=== PATIENT | female | born 1990 | race African-American/Black ===

== ENCOUNTER 2017-09-10 16:25 | Inpatient (IN) | payer BC ==
[2017-09-11] MEDS ORDERED: TERBUTALINE 1 MG/ML VIAL SQ PRN (06:11)
[2017-09-11] MEDS ORDERED: LIDOCAINE 1% (PF) 10 MG/ML (30 ML SDV) SQ PRN (06:11)
[2017-09-11] MEDS ORDERED: CARBOPROST TROMETHAMINE 250 MCG/ML 1 ML AMP IM PRN (06:11)
[2017-09-11] MEDS ORDERED: OXYTOCIN 10 UNIT/ML 1 ML VIAL IM PRN (06:11)
[2017-09-11] MEDS ORDERED: METHYLERGONOVINE 0.2 MG/ML 1 ML AMP IM PRN (06:11)
[2017-09-11 06:15] VITALS: BMI 38.2
[2017-09-11] MEDS ORDERED: OXYTOCIN 20 UNITS/1000 ML NS 1,000 ML IV SCH (06:15)
[2017-09-11] MEDS ORDERED: LACTATED RINGERS 1,000 ML IV SCH ×2 (06:15)
[2017-09-11 06:32] LABS: Basophils % (A) 0 %; Eosinophils # (A) 0.3 k/uL (0-0.7); Eosinophils % (A) 3 %; HCT 33.9 % (34.0-46.0); HGB 10.7 gm/dL (11.4-16.0); Lymphocytes # (A) 3.2 k/uL (1.0-4.8); Lymphocytes % (A) 26 %; MCH 27.4 pg (25.0-35.0); MCHC 31.6 g/dL (31.0-37.0); MCV 86.8 fL (80.0-100.0); Mean Platelet Volume 9.1; Monocytes # (A) 0.7 k/uL (0-1.0); Monocytes % (A) 5 %; Neutrophils # (A) 7.8 k/uL (1.3-7.7); Neutrophils % (A) 63 %; Platelet Count 316 k/uL (150-450); RBC 3.91 m/uL (3.80-5.40); RDW 15.4 % (11.5-15.5); WBC 12.3 k/uL (3.8-10.6)
--- NOTE | 2017-09-11 08:24 | P.HPOB ---
History of Present Illness H&P Date: 09/11/17 This is a 27-year-old black female 1 para 0 EDC 09/10/2017 at 40 and one sevenths weeks' gestation. Patient presents today for induction with favorable cervix. is essentially unremarkable. She denies vaginal bleeding or fluid leakage. Fetus is been active throughout the . history significant for blood type B positive, rubella status immune. VDRL testing, urine culture, gonorrhea and chlamydia cultures, hepatitis B surface antigen, HIV testing, urine drug screen all negative. Group B strep cultures negative. One-hour Glucola 133. In addition, sonographically a 11 x 9 x 9 cm uterine fibroid is noted on the right uterine sidewall. Social history patient is single, she denies tobacco or alcohol use. She has a history of marijuana use in the past but urine drug screen with the is negative. Family history significant for hypertension, heart disease, and diabetes. Past surgical history wisdom teeth extracted in 2015. Current medications vitamins daily. ALLERGIES include dairy products and dust mites. She states that Imitrex makes her tongue swell. Past medical history significant for anxiety, asthma, and sleep disorder. On exam this is a pleasant black female, she is 5 foot 5 inches 230 pounds blood pressure 144/87. The general physical exam is within normal limits. Chest is clear in all bennett. No peripheral edema. heart tones are in the 140s with frequent accelerations, however subtle late decelerations are noted as well. Cervix is 3-4 cm dilated, 70% effaced, -2 station, vertex presentation. Artificial amniorrhexis reveals clear fluid. Internal scalp lead is placed. Impression: 40 and one sevenths weeks intrauterine , here for induction , 11 cm uterine fibroid noted, occasional subtle late decelerations noted at this time. Plan: Currently heart rate is reassuring and we will continue to monitor. Begin oxytocin augmentation per hospital protocol and titrated as indicated. Analgesic options have been reviewed. Continue close maternal and surveillance. Anticipate normal spontaneous vaginal delivery. Review of Systems Constitutional: Reports as per HPI Past Medical History Past Medical History: No Reported History, Asthma Additional Past Medical History / Comment(s): anxiety,asthma History of Any Multi-Drug Resistant Organisms: None Reported Past Surgical History: No Surgical Hx Reported Additional Past Surgical History / Comment(s): wisdom teeth extracted Past Anesthesia/Blood Transfusion Reactions: No Reported Reaction Past Psychological History: No Psychological Hx Reported Smoking Status: Never smoker Past Alcohol Use History: None Reported Past Drug Use History: None Reported - Past Family History Mother Family Medical History: Diabetes Mellitus, Hypertension Medications and Allergies Allergies Allergy/AdvReac Type Severity Reaction Status Date / Time sumatriptan [From Imitrex] Allergy Anaphylaxis Verified 03/08/17 22:25 Exam - Vital Signs Vital signs: Vital Signs Temp Pulse Resp BP Pulse Ox 09/11/17 06:12 97.4 F L 103 H 18 144/87 98 Intake and Output 09/10/17 09/11/17 09/11/17 22:59 06:59 14:59 Other: Weight 104.326 kg See dictation under HPI please Results Result Diagrams: 09/11/17 06:15 Abnormal Lab Results - Last 24 Hours (Table) 09/11/17 Range/Units 06:15 WBC 12.3 H (3.8-10.6) k/uL Hgb 10.7 L (11.4-16.0) gm/dL Hct 33.9 L (34.0-46.0) % Neutrophils # 7.8 H (1.3-7.7) k/uL Assessment and Plan Plan: Oxytocin per hospital protocol. Continue close maternal and surveillance. Anticipate normal spontaneous vaginal delivery. Time with Patient: Less than 30
[2017-09-11] MEDS ORDERED: BUTORPHANOL 1 MG/ML 1 ML VIAL IV PRN (08:41)
[2017-09-11] MEDS ORDERED: CITRIC ACID-SODIUM CITRATE 15 ML CUP PO ONE (10:54)
[2017-09-11] MEDS ORDERED: ceFAZolin IN SWFI 2 GM/20 ML SYRINGE IVP ONE (10:54)
[2017-09-11] MEDS ORDERED: OXYTOCIN 10 UNIT/ML 1 ML VIAL ONE (11:16)
[2017-09-11] MEDS ORDERED: NALBUPHINE 10 MG/ML AMPUL ONE (11:16)
[2017-09-11] MEDS ORDERED: PHENYLEPHRINE-0.9% NACL SYG 1 MG/10 ML SYRINGE ONE (11:16)
[2017-09-11] MEDS ORDERED: ONDANSETRON 4 MG/2 ML VIAL ONE (11:16)
[2017-09-11] MEDS ORDERED: ePHEDrine SULFATE/0.9% NACL/PF 50 MG/5 ML SYRINGE IV ONE (11:16)
[2017-09-11] MEDS ORDERED: MORPHINE SULFATE (PF) 0.3 MG/0.3 ML SYR ONE (11:16)
[2017-09-11] MEDS ORDERED: KETOROLAC 30 MG/ML 1 ML VIAL ONE (11:16)
[2017-09-11] MEDS ORDERED: diphenhydrAMINE 50 MG/ML 1 ML VIAL IVP PRN ×3 (11:40→12:14)
[2017-09-11] MEDS ORDERED: NALBUPHINE 10 MG/ML AMPUL IV PRN (11:40)
[2017-09-11] MEDS ORDERED: MORPHINE SULFATE 4 MG/ML SYRINGE IVP PRN (11:40)
[2017-09-11] MEDS ORDERED: NALOXONE 0.4 MG/ML 1 ML VIAL IV PRN ×2 (11:40→12:14)
[2017-09-11] MEDS ORDERED: ONDANSETRON 4 MG/2 ML VIAL IVP PRN (12:14)
[2017-09-11] MEDS ORDERED: HYDROcodone/APAP 5-325MG 1 EACH TAB PO PRN (12:14)
[2017-09-11] MEDS ORDERED: diphenhydrAMINE 25 MG CAP PO PRN (12:14)
[2017-09-11] MEDS ORDERED: METOCLOPRAMIDE 5 MG/ML 2 ML VIAL IVP PRN (12:14)
[2017-09-11] MEDS ORDERED: ZOLPIDEM 5 MG TAB PO PRN (12:14)
[2017-09-11] MEDS ORDERED: diphenhydrAMINE 50 MG CAP PO PRN (12:14)
--- NOTE | 2017-09-11 12:14 | P.OP ---
Date of Procedure: 09/11/17 Preoperative Diagnosis: Nonreassuring heart tones, 40 and one sevenths weeks' gestation, known fibroid uterus. Postoperative Diagnosis: Asynclitic brow presentation, nuchal cord 1, multiple fibroids Procedure(s) Performed: Primary low transverse section Anesthesia: spinal Surgeon: Leticia Melara Sales Estimator #1: Cynthia Ford Estimated Blood Loss (ml): 600 IV fluids (ml): 700 Urine output (ml): 100 Pathology: other (Placenta) Condition: stable Disposition: PACU Description of Procedure: Through the course of the first stage of labor, repetitive late decelerations were noted. Patient became 4 cm, 100% effaced, -2 station. Pitocin had been off for approximately 1 hour. After thorough discussion, the decision was made to proceed with primary low transverse section for nonreassuring heart tones. Patient is brought back to the operating suite where a spinal with Duramorph is given. She's placed in the dorsal lithotomy position with left lateral uterine displacement. The appropriate timeout is performed to assure proper patient and procedural identification. Antibiotics are given. The abdomen is prepped and draped in usual sterile fashion. Analgesia is checked and noted to be adequate. A low transverse skin incision is made in this is carried down through the subcutaneous tissue which is approximately 6 cm deep. Fascia is isolated, scored and extended bilaterally with curved Vega scissors. Peritoneum is next identified and incised, there is no bowel or bladder involvement. The disposable ring retractor is placed for excellent visualization. A low transverse uterine incision is made, this is carried down through the myometrium and extended with blunt dissection. The head is noted to be deep in the pelvis, and in an asynclitic position. Brow presentation is noted. The head is gently brought into the uterine incision. There is a nuchal cord 1 that was reduced. Patient is officially delivered of a liveborn male infant at 1134 hrs. Umbilical cord is doubly clamped and ligated, he is handed to waiting nurses for evaluation where scores of 6 and 8 at one and 5 minutes respectively are given. The placenta is delivered spontaneously, it is inspected and noted to be intact with trivascular cord. At this time the uterus is externalized. Multiple large fibroids are noted, largest approximately 12-14 cm, very vascular in appearance. The uterus is swept clean with a sterile sponge to avoid any retained products of conception. The uterus is closed in a two-step fashion first layer running locking with 0 Vicryl, second layer imbricated with 0 Vicryl. Bilateral tubes and ovaries are inspected and noted to be normal. Abdomen is suctioned with suction on guard and the uterus is gently placed back into the abdominal cavity. Bilateral gutters are inspected and cleaned. Peritoneum is allowed to close by secondary intention. Fascia is closed in a running stitch of 0 Vicryl with over ligation in the midline. Subcutaneous tissue is irrigated, noted to be clean and dry, reapproximated with 3-0 Vicryl in a running stitch. 4-0 undyed Monocryl issues for final subcuticular closure. Steri-Strips and Mastisol are applied to the wound. Uterus is massaged. Total estimated blood loss 600 mL's. weighed 9 lbs. 5 oz. or 4230 g. The patient and her are requesting circumcision further infant son.
[2017-09-11] MEDS: LACTATED RINGERS 1,000 ML IV SCH ×2 (17:33→21:03)
[2017-09-11] MEDS: SENNOSIDES-DOCUSATE SODIUM 1 EACH TAB PO SCH (20:15)
[2017-09-11] MEDS: KETOROLAC 30 MG/ML 1 ML VIAL IVP PRN (21:22)
[2017-09-12] MEDS: ACETAMINOPHEN TAB 325 MG TAB PO PRN ×2 (03:14→10:07)
[2017-09-12] MEDS: LACTATED RINGERS 1,000 ML IV SCH (05:12)
[2017-09-12] MEDS: KETOROLAC 30 MG/ML 1 ML VIAL IVP PRN (06:51)
--- NOTE | 2017-09-12 07:47 | P.PN ---
Subjective Progress Note Date: 09/12/17 Principal diagnosis: Postoperative day #1 Slept well. Pain well managed. Minimal lochia rubra. No incisional complaints. Positive flatus Objective - Vital Signs Vital signs: Vital Signs Temp 99.8 F H 09/12/17 04:00 Pulse 108 H 09/12/17 04:00 Resp 16 09/12/17 06:00 BP 140/87 09/12/17 04:00 Pulse Ox 100 09/12/17 04:00 Intake & Output 09/11/17 09/12/17 09/12/17 18:59 06:59 18:59 Intake Total 600 Output Total 150 900 300 Balance -150 -300 -300 Intake: Other 600 Output: Urine 150 900 300 Straight 200 Uretheral (Martinez) 300 - Constitutional General appearance: Present: average body habitus, cooperative - EENT Eyes: Present: PERRLA ENT: Present: hearing grossly normal - Neck Neck: Present: normal ROM Thyroid: bilateral: normal size - Respiratory Respiratory: bilateral: CTA - Cardiovascular Rhythm: regular Heart sounds: normal: S1, S2 - Gastrointestinal General gastrointestinal: Present: normal bowel sounds - Genitourinary Genitourinary Comment(s): Incision clean and dry, well approximated, Steri-Strips applied. Fundus firm, midline, 18-20 weeks size, nontender, irregular in contour. - Integumentary Integumentary: Present: normal turgor - Neurologic Neurologic: Present: CNII-XII intact - Musculoskeletal Musculoskeletal: Present: gait normal, strength equal bilaterally - Psychiatric Psychiatric: Present: A&O x's 3, appropriate affect, intact judgment & insight - Labs CBC & Chem 7: 09/11/17 06:15 Assessment and Plan Assessment: Doing well postoperative day 1 Plan: Advance diet and activity. Check CBC this morning, likely discontinuation of IV. Patient may shower. Time with Patient: Less than 30
[2017-09-12 08:05] LABS: Basophils % (A) 0 %; Eosinophils # (A) 0.2 k/uL (0-0.7); Eosinophils % (A) 1 %; HGB 8.4 gm/dL (11.4-16.0); Hypochromasia Slight; Lymphocytes # (A) 2.1 k/uL (1.0-4.8); Lymphocytes % (A) 14 %; MCHC 31.2 g/dL (31.0-37.0); MCV 86.6 fL (80.0-100.0); Mean Platelet Volume 9.9; Monocytes # (A) 0.8 k/uL (0-1.0); Monocytes % (A) 5 %; Neutrophils # (A) 12.1 k/uL (1.3-7.7); Neutrophils % (A) 78 %; Platelet Count 262 k/uL (150-450); RBC 3.11 m/uL (3.80-5.40); RDW 15.6 % (11.5-15.5); WBC 15.4 k/uL (3.8-10.6)
[2017-09-12] MEDS: SENNOSIDES-DOCUSATE SODIUM 1 EACH TAB PO SCH ×2 (10:06→19:38)
[2017-09-12] MEDS: IBUPROFEN 600 MG TAB PO PRN ×2 (13:09→19:38)
--- NOTE | 2017-09-12 13:45 | P.PN ---
Progress Note - Text Date:09/12 Time:705 Patient is status post . Patient seen this morning with VAS score of 2.c/o of pruritus, no c/o nausea/vomiting.
[2017-09-13] MEDS: IBUPROFEN 600 MG TAB PO PRN ×3 (02:02→15:52)
[2017-09-13] MEDS: SENNOSIDES-DOCUSATE SODIUM 1 EACH TAB PO SCH (08:11)
--- NOTE | 2017-09-13 08:17 | P.DS ---
Providers Date of admission: 09/11/17 06:05 Expected date of discharge: 09/13/17 Attending physician: Leticia Melara Primary care physician: [facility] Course: This is a 27-year-old black female 1 para 0 EDC 09/10/2017 at 40 and one sevenths weeks' gestation. Patient presented for induction with favorable cervix. Artificial amniorrhexis revealed clear fluid. Oxytocin was started and titrated per hospital protocol. Group B strep cultures are negative. Patient has a history of large uterine fibroids, largest 12 cm sonographically. Please see my dictated history and physical for details. Patient progressed through labor but had runs of late decelerations. For nonreassuring heart tones, primary low transverse section was performed. Patient gave to a liveborn male with scores of 6 and 8 at one and 5 minutes respectively. He was noted to be in a brow presentation with extension of the head. In addition, multiple large fibroids in the uterus were noted. Ovaries appeared normal. Estimated blood loss 600 mL 's. Please see dictated delivery note for details. Patient is doing well this morning. She is voiding, ambulating and passing flatus without difficulty. Vital signs are stable and she is afebrile. Fundus is firm and in the midline, asymmetric and 20 weeks size. Incision is clean and dry, intact, Steri-Strips applied. Florence circumcision has been performed. Pain is well tolerated with ibuprofen products. Patient is being discharged home in addition. She will follow-up with me in the office in 2 weeks. She is reminded no intercourse, tampons or douching. She will use [id number] Motrin products as needed for pain, 200 mg pills, for every 8 hours as needed. I have asked her to call with any fevers shakes or chills, foul smelling or copious lochia, with the passage of large blood clots, with any pain not alleviated by ibuprofen, or indeed with any concerns. She is reminded no heavy lifting, no car driving for 2 weeks. Florence will follow-up with dye beck reel operator as recommended. Patient Condition at Discharge: Good Plan - Discharge Summary Follow up Appointment(s)/Referral(s): Leticia Melara MD [STAFF PHYSICIAN] - 2 Weeks Discharge Disposition: HOME SELF-CARE
[2017-09-13 08:44] VITALS: RESP 16
[2017-09-13] MEDS: ACETAMINOPHEN TAB 325 MG TAB PO PRN (12:40)
[2017-09-13] MEDS ORDERED: SIMETHICONE 80 MG CHEWABLE PO SCH (13:00)
[2017-09-13 18:59] VITALS: BP 129/64; PULSE 87; TEMP 97.5
== END 2017-09-13 18:00 | disposition home or self-care (01) | DRG 766 ==
LOC: 4FBP 09-11 06:05
PROVIDERS: ADMIT Obstetrics & Gynecology; ATTEND Obstetrics & Gynecology
PROC: 00HU33Z Insertion of Infusion Device into Spinal Canal, Percutaneous Approach (ICD-10-PCS; 2017-09-11)
PROC: 3E0R3NZ Introduction of Analgesics, Hypnotics, Sedatives into Spinal Canal, Percutaneous Approach (ICD-10-PCS; 2017-09-11)
PROC: 10D00Z1 Extraction of Products of Conception, Low, Open Approach (ICD-10-PCS; principal; 2017-09-11 11:15)
DX: O48.0 Post-term pregnancy (principal); O76 Abnormality in fetal heart rate and rhythm complicating labor and delivery; D25.9 Leiomyoma of uterus, unspecified; O69.81X0 Labor and delivery complicated by cord around neck, without compression, not applicable or unspecified; O32.3XX0 Maternal care for face, brow and chin presentation, not applicable or unspecified; O26.893 Other specified pregnancy related conditions, third trimester; Z3A.40 40 weeks gestation of pregnancy; Z82.49 Family history of ischemic heart disease and other diseases of the circulatory system; Z88.8 Allergy status to other drugs, medicaments and biological substances; Z91.048 Other nonmedicinal substance allergy status; Z91.011 Allergy to milk products; Z83.3 Family history of diabetes mellitus; Z37.0 Single live birth
CPT/HCPCS: 85025; 88307

== ENCOUNTER → 2020-02-25 | Outpatient (CLI) | payer OTHER ==
[2020-02-25 14:15] LABS: Glucose 3 Hour, Gest 112 mg/dL
== END | disposition home or self-care (01) ==
LOC: LABWHC1 08:44
PROVIDERS: ATTEND Obstetrics & Gynecology
DX: O24.419 Gestational diabetes mellitus in pregnancy, unspecified control (principal)
CPT/HCPCS: 36415; 82951; 82952